=== PATIENT | male | born 1975 | race African-American/Black ===

== ENCOUNTER 2020-12-16 17:47 | Inpatient (IN) | payer OTHER ==
[~2020-12-16] VITALS: Ht 172.7 cm; Wt 66.0 kg
[2020-12-16 19:18] LABS: BASOPHIL 0.9 % (0-2); EOSINOPHIL 3.9 % (0-5); HCT 42.6 % (42.0-52.0); HGB 13.9 g/dl (13.2-18.0); LYMPHOCYTE 30.4 % (15-48); MCH 31.9 pg (25.0-31.0); MCHC 32.6 g/dL (32.0-36.0); MCV 97.7 fL (78.0-100.0); MONOCYTE 6.2 % (0-12); MPV 10.4 fL (6.0-9.5); NEUTROPHIL 58.4 % (41-80); NRBC 0; PLT 158 K/uL (150-400); RBC 4.36 M/uL (4.70-6.00); RDW 14.6 % (11.5-14.0); WBC 5.7 K/uL (4.0-10.5)
[2020-12-16 19:33] LABS: BUN/CREAT RATIO (CALC) 13.1 RATIO; CREATININE 0.99 mg/dL (0.67-1.17); POTASSIUM 4.3 mmol/L (3.5-5.1)
--- NOTE | 2020-12-17 06:26 | NUR ---
PT MED SURG CHARGE NURSE ALEXIA KRISHNAN IS ALLOWED TO HAVE CALL LIGHT AT BEDSIDE WITH 1:1 SITTER IN ROOM AT ALL TIMES WITH PATIENT.
--- NOTE | 2020-12-17 06:34 | NUR ---
[id number] CALLED [facility] SET UP OPERATOR MELONY RAMOS DISCUSSED PT REQUEST FOR CALL LIGHT SYSTEM APPROVAL GIVEN BUT AIDE MUST CONTROL HAND HELD REMOTE GIVEN TO AIDE AT THIS TIME
[2020-12-17 07:20] LABS: BASOPHIL 0.3 % (0-2); EOSINOPHIL 0.1 % (0-5); HCT 46.8 % (42.0-52.0); LYMPHOCYTE 7.4 % (15-48); MCH 31.2 pg (25.0-31.0); MCHC 32.1 g/dL (32.0-36.0); MCV 97.3 fL (78.0-100.0); MONOCYTE 3.3 % (0-12); MPV 10.4 fL (6.0-9.5); NEUTROPHIL 88.6 % (41-80); NRBC 0; PLT 164 K/uL (150-400); RBC 4.81 M/uL (4.70-6.00); RDW 14.5 % (11.5-14.0)
[2020-12-17 07:28] LABS: WBC 13.1 K/uL (4.0-10.5)
[2020-12-17 07:44] LABS: BUN/CREAT RATIO (CALC) 14.3 RATIO; CREATININE 0.84 mg/dL (0.67-1.17); POTASSIUM 4.4 mmol/L (3.5-5.1)
--- NOTE | 2020-12-17 15:32 | NUR ---
@1505 PT CHEST TUBE LEAKING AIR, AND BUBBLING, INFORMED DR. GARCIA, INFORMED ME TO CALL DR. RODRIGUES AND INFORM HIM. CALLED DR. RODRIGUES AND LEFT MESSAGE @1515. PT IN NO RESPORTORY DISTRESS AT THIS TIME. REFUSED PAIN MEDS AT THIS TIME SAID HE IS NOT HURTING. TELY CONTINUE WITH SB HR 43. LUNGS CONTINUE TO BE CLEAR AND DIM IN BASES.
[2020-12-18 07:09] LABS: BASOPHIL 0.4 % (0-2); EOSINOPHIL 2.5 % (0-5); HCT 43.7 % (42.0-52.0); HGB 14.3 g/dl (13.2-18.0); LYMPHOCYTE 37.1 % (15-48); MCH 31.6 pg (25.0-31.0); MCHC 32.7 g/dL (32.0-36.0); MCV 96.7 fL (78.0-100.0); MONOCYTE 7.8 % (0-12); MPV 10.7 fL (6.0-9.5); NEUTROPHIL 51.8 % (41-80); NRBC 0; PLT 158 K/uL (150-400); RBC 4.52 M/uL (4.70-6.00); RDW 14.1 % (11.5-14.0); WBC 5.3 K/uL (4.0-10.5)
[2020-12-18 07:31] LABS: MAGNESIUM 2.1 mg/dL (1.8-2.4); POTASSIUM 4.3 mmol/L (3.5-5.1)
--- NOTE | 2020-12-18 16:46 | NUR ---
LATE ENTRY: SPOKE WITH DR. GARCIA REGARDING SI. HE STATED PER PATIENT THAT WAS SOME TIME AGO AND HE WAS NOT EXPERIENCING ANY SUICIDAL IDEATIONS AT THIS TIME. DR. GARCIA HAS REMOVED ALL RESTRICTIONS.
--- NOTE | 2020-12-18 16:47 | NUR ---
MET WITH PT. HE STATED THAT HE WORKS AT [employer] IN [place]. HE DOES NOT REQUIRE ANY ASSISTANCE. HE IS AWARE OF FOOD G[employer]TAN [employer]., HE STATES THAT HE HAS FRIENDS AND FAMILY IF HE REQUIRES ANY ASSISTANCE.
== END 2020-12-18 15:40 | disposition home or self-care (01) | DRG 200 ==
LOC: FER 17:47 → FMS 21:18
PROVIDERS: Emergency Medicine; Internal Medicine; Nurse Practitioner; ADMIT Internal Medicine
PROC: 0W9B30Z Drainage of Left Pleural Cavity with Drainage Device, Percutaneous Approach (ICD-10-PCS; principal; 2020-12-16)
DX: J93.83 Other pneumothorax (principal); R45.851 Suicidal ideations; T85.628A Displacement of other specified internal prosthetic devices, implants and grafts, initial encounter; Z20.822 Contact with and (suspected) exposure to COVID-19; J45.909 Unspecified asthma, uncomplicated; I49.8 Other specified cardiac arrhythmias; F17.210 Nicotine dependence, cigarettes, uncomplicated; Z98.890 Other specified postprocedural states; Y83.8 Other surgical procedures as the cause of abnormal reaction of the patient, or of later complication, without mention of misadventure at the time of the procedure; Z83.3 Family history of diabetes mellitus
CPT/HCPCS: 36415; 71045; 71046; 80048; 83605; 83735; 85025; 93005; J1170; J1650; J1885; J2405; J2704; U0002